=== PATIENT | female | born 1990 | race Hispanic/Latino ===

== ENCOUNTER 2020-12-15 15:27 | Inpatient (IN) | payer BC ==
[~2020-12-15] VITALS: Ht 162.6 cm; Wt 77.7 kg
[~2020-12-15 15:27] MED LIST: BACTRIM DS TAB1 EACH PO; PRENATAL ONE T1 EACH PO
--- OUTSIDE RECORDS SUMMARY | 2020-12-15 15:34 | XMS ---
PreManage Notification: BEREKET STAPLETON Security Nursing Technician Events No recent Security Events currently on file CRITERIA MET - [facility] - 2 Visits in 30 Days CARE PROVIDERS JENNIFER RODRIGUEZ Obstetrics \T\ Gynecology Current PHONE: [phone] Ruby has no Care Guidelines for this patient. Mat VISIT COUNT (12 MO.) 2 [facility] TOTAL 2 NOTE: Visits indicate total known visits. ED/UCC VISIT TRACKING (12 MO.) 12/15/2020 15:[address] [facility] OR TYPE: Emergency COMPLAINT: - FEVER,BACK PAIN,CHILLS,VOMITING 12/14/2020 16:[address] [facility] OR TYPE: Emergency COMPLAINT: - CHILLS, FREQUENT URINATION, BODY ACHES INPATIENT VISIT TRACKING (12 MO.) No inpatient visits to display in this time frame [email or web address]
--- NOTE | 2020-12-15 21:30 | NUR ---
PT ARRIVED TO ROOM 130 AT 2049 VIA STRETCHER, PT ABLE TO AMBULATE TO BATHROOM TO VOID AND THEN INTO BED. PT REPORTS 7/10 RIGHT FLANK PAIN, PRN TORADOL GIVEN. REMAINDER OF ASSESSMENT IS BENIGN-SEE DOCUMENTATION. IV SITES INTACT AND PATENT. FLUIDS STARTED PER ORDERS. PT PROVIDED WITH ICE WATER AND EDUCATED ON BED CONTROLS AND CALL LIGHT. NO FURTHER REQUESTS, CALL LIGHT WITHIN REACH.
--- NOTE | 2020-12-15 22:05 | NUR ---
CALL LIGHT ANSWERED, PT REPORTS BURNING IN IV SINCE STARTING POTASSIUM INFUSION. INFUSION RATE SLOWED AT THIS TIME.
--- NOTE | 2020-12-15 23:36 | NUR ---
IN TO START NEXT BAG OF POTASSIUM. PT SLEEPING AT THIS TIME, NO APPARENT DISTRESS, RESPIRATIONS EVEN AND UNLABORED.
--- NOTE | 2020-12-16 00:56 | NUR ---
IN TO START NEXT BAG OF POTASSIUM. PT CONTINUES TO SLEEP, NO APPARENT DISTRESS. RESPIRATIONS EVEN AND UNLABORED, REMAINS ON ROOM AIR. VITAL SIGNS STABLE. IV APPEARS INTACT, FLUIDS INFUSING WNL. WILL ALLOW FOR REST AT THIS TIME.
--- NOTE | 2020-12-16 01:10 | NUR ---
PT UP TO BATHROOM, INDEPENDENT ONCE LINES UNPLUGGED. VOIDED 650ML AND RETURNED TO BED. AFEBRILE. REPORTS FLANK PAIN IS IMPROVED, CURRENTLY RATES 4/10 AND TOLERABLE. DENIES NEEDS, CALL LIGHT WITHIN REACH.
--- NOTE | 2020-12-16 02:30 | NUR ---
PT SLEEPING, NO APPARENT DISTRESS, RESPIRATIONS EVEN AND UNLABORED. 4TH BAG OF POTASSIUM STARTED.
--- NOTE | 2020-12-16 04:30 | NUR ---
CALL LIGHT ANSWERED. PT UP TO BATHROOM INDEPENDENTLY ONCE CORDS WERE UNPLUGGED, PT VOIDED AND RETURNED TO BED. PT REPORTS 6/10 RIGHT FLANK PAIN, PRN TORADOL GIVEN. ASSESSMENT COMPLETED AND UNCHANGED. PT PROVIDED WITH WARM BLANKETS AND FRESH ICE WATER. DENIES FURTHER NEEDS, CALL LIGHT WITHIN REACH.
--- NOTE | 2020-12-16 10:52 | NUR ---
Patient had a temp. of 100.6, RN was notified. Patient is asking for warm blankets and to have her bed changed after she gets warmed up around noon. Call light is in reach.
--- NOTE | 2020-12-16 10:52 | NUR ---
REPORT RECEIVED FROM NIGHT RN AND PT. CARE RESUMED. PT. IS DROWSY BUT EASILY AWAKENS AND ORIENTED. SHE C/O MILD RIGHT BACK PAIN. LUNGS CLEAR THROUGHOUT AND BOWEL TONES ACTIVE. IN THE ROOM. IV SITE WNL AND IVF CHANGED. SHE WAS ASSISTED WITH ORDERING BREAKFAST. DISCUSSED POC, AMBULATION AND SAFETY. LEFT RESTING WITH CALL LIGHT IN REACH.
--- NOTE | 2020-12-16 11:07 | NUR ---
Removed IV from left hand with RN supervising due to pt complaining of pain at IV site. Otherwise IV site WNL. No redness, bleeding, or signs of infiltration.
[2020-12-16] MEDS ORDERED: CALCIUM CARBON600 MG PO (13:29)
--- NOTE | 2020-12-16 13:29 | NUR ---
MED REC COMPLETE
--- NOTE | 2020-12-16 14:00 | NUR ---
STUDENT RN REPORTS PT. HAS 7/10 PAIN FROM [place]. GIVEN TORODOL BY STUDENT AND INSTRUCTOR . PT. IS TOLERATING REG. DIET AND DENIES NAUSEA. VITALS STABLE. PT. LEFT RESTING WITH CALL LIGHT IN REACH.
--- NOTE | 2020-12-16 19:26 | NUR ---
RECEIVED REPORT FROM TIP MORALES. pt RESTING ON LEFT SIDE. LIGHTS OFF. RESPIRATIONS REGULAR. WHITEBOARD UPDATED. CALL LIGHT WITHIN REACH.
--- NOTE | 2020-12-16 20:17 | NUR ---
CALL LIGHT ON. pt REPORTED 7/10 HEADACHE. PRN GIVEN. pt HAS COUGH, DIM LUNGS IN THE BASES. ACTIVE BOWEL TONES. NO PAIN OTHER THAN HEADACHE. SET UP FOR SHOWER. FRESH LINENS. PROVIDED WITH WATER. CALL LIGHT WITHIN REACH.
--- NOTE | 2020-12-16 21:40 | NUR ---
pt COMPLETED SHOWER, IV UNWRAPPED. COUGH MEDICATION GIVEN (SEE MAR). AT BEDSIDE. NO REQUESTS AT THIS TIME. CALL LIGHT WITHIN REACH.
--- NOTE | 2020-12-17 05:50 | NUR ---
IN TO DO ASSESSMENT. pt WOKE TO VOICE REPORTED HAVING SLEPT MOST OF THE NIGHT. REQUESTED PAIN MEDICATION FOR 4/10 HEADACHE, DENIED COUGHING AFTER COUGH MEDICATION LAST NIGHT. PRN GIVEN. ASSESSMENT DONE. NO FURTHER REQUESTS AT THIS TIME. AT BEDSIDE. CALL LIGHT WITHIN REACH.
--- NOTE | 2020-12-17 09:30 | NUR ---
REPORT RECEIVED FROM NIGHT RN AND PT. CARE RESUMED. PT. IS ALERT AND ORIENTED. IN THE ROOM. SHE DENIES PAIN OR NAUSEA AT THIS TIME. LUNGS CLEAR THROUGHOUT. AFEBRILE. PT. DID NOT EAT HER BREAKFAST AND STATES SHE IS A PICKY EATER. DISCUSSED POC AND MEDS. PT. LEFT RESTING IN BED WITH CALL LIGHT IN REACH.
--- NOTE | 2020-12-17 09:51 | NUR ---
Patient was sleeping and just started to eat her breakfast. Visitor is in the room. VItals, I&Os are done.
[2020-12-17] MEDS ORDERED: CEFPODOXIME PR200 MG PO (10:22)
--- NOTE | 2020-12-17 11:15 | NUR ---
SPOKE WITH PATIENT AND IN ROOM. PATIENT WAS DRESSED AND IS BEING DISCHARGED. PATIENT DENIES ANY NEEDS TO GO HOME SAFELY. DISCUSSED IMPORTANCE OF PCP. SHE STATES SHE COULD USE SOME HELP WITH FINDING SOMEONE. DISCUSSED WE CAN HELP WITH THIS. PATIENT IS FROM [place], IS NOT SURE IF SHE WANTS SOMEONE THERE OR HERE. I WAS ASKED TO COME TALK TO ANOTHER PATIENT AND TOLD HER WE CAN TALK LATER BEFORE SHE GOES.
--- NOTE | 2020-12-17 13:10 | NUR ---
ALL DISCHARGE INSTRUCTIONS REVIEWED WITH PT. AND QUESTIONS ANSWERED. IV REMOVED WITH CATH INTACT AND EDU PROVIDED. PT. LEFT VIA WHEELCHAIR WITH ALL BELONGINGS WITH RN AND .
--- NOTE | 2020-12-17 14:00 | NUR ---
WHEN I CHECKED BACK PATIENT HAD ALREADY LEFT. WILL HAVE CHW CALL NEXT WEEK TO SEE IF WE CAN HELP FIND PCP.
--- NOTE | 2020-12-17 21:29 | EKG ---
[facility] [address] [place], [place] [address] Signed Sinus tachycardia Left axis deviation Pulmonary disease pattern Abnormal ECG No previous ECGs available Confirmed by TAMERA ELLIOTT DO ([id number]) on 12/17/2020 9:29:31 PM Electronically Signed By: TAMERA ELLIOTT DO 12/17/202128 PATIENT NAME: BEREKET STAPLETON Electrocardiogram DATE OF : [birth year] PHYSICIAN: TAMERA ELLIOTT DO REPORT #: [id number] REPORT IS CONFIDENTIAL AND NOT TO BE RELEASED WITHOUT AUTHORIZATION
== END 2020-12-17 13:15 | disposition home or self-care (01) | DRG 872 ==
LOC: ED 15:27 → MS 20:42 → CCU 20:42 → MS 12-16 06:10
PROVIDERS: ADMIT Internal Medicine; ATTEND Internal Medicine
DX: A41.9 Sepsis, unspecified organism (principal); N10 Acute pyelonephritis; R65.20 Severe sepsis without septic shock; E87.6 Hypokalemia; Z20.822 Contact with and (suspected) exposure to COVID-19
CPT/HCPCS: 74177; 80053; 83605; 83735; 85007; 85025; 87040; 93005; 93010; 96365; 96366; 99285-25; C9803; J0696; J1650; J1885; J3480; J7030; J7121; Q9967; U0003